=== PATIENT | female | born 1980 ===

== ENCOUNTER 2017-03-24 13:56 | Emergency (ER) | payer SELFPAY ==
[2017-03-24 14:07] VITALS: TEMP 99
--- NOTE | 2017-03-24 14:56 | C.PDOC ---
History Of Present Illness 37 y/o F p/w lower gingival swelling and pain x 3 months. States has been seen before but has never followed up with dental due to lack of insurance. Patient denies fever, drooling, vomiting. She also notes an abdominal pain that she has had for over a year. Time Seen by Provider: 03/24/17 14:17 Chief Complaint (Nursing): Dental Pain Past Medical History Vital Signs: Last Vital Signs Temp 99 F 03/24/17 14:03 Pulse 85 03/24/17 15:09 Resp 16 03/24/17 15:09 BP 119/75 03/24/17 15:09 Pulse Ox 96 03/24/17 15:32 - Medical History PMH: Asthma, Migraine Family History: States: No Known Family Hx - Social History Hx Alcohol Use: No Hx Substance Use: No - Immunization History Hx Tetanus Toxoid Vaccination: No Hx Influenza Vaccination: No Hx Pneumococcal Vaccination: No Review Of Systems Except As Marked, All Systems Reviewed And Found Negative. Constitutional: Negative for: Fever Cardiovascular: Negative for: Chest Pain Physical Exam - Physical Exam Additional Physical Exam Comments: Gen: NAD Head: NC ENT: Lower gingival inflammation without visible abscess. No drooling. No ASW SPECIALIST. Uvula midline. Poor dentition. Neck: Supple, FROM Abd: Soft, no guarding or rebound. ED Course And Treatment O2 Sat by Pulse Oximetry: 96 Medical Decision Making Medical Decision Making: Vital signs normal. Nontoxic in appearance. Will start patient on antibiotics and pain medication but advised to f/u with dentistry for definitive management. Informed patient of other EDs with dental ER but no indication for emergent Dental consult at this time. Also informed patient to follow up with clinic for further evaluation of abdominal pain but no indication for further evaluation in ED for this chronic abdominal pain at this time. Disposition - Disposition Disposition: HOME/ ROUTINE Disposition Time: 14:54 Condition: STABLE Prescriptions: Amoxicillin/Clavulanate [Augmentin 875 MG-125 MG] 1 tab PO BID #20 tab Famotidine/Ca Carb/Mag Hydrox [Pepcid Complete Tablet Chew] 1 each PO BID #28 tab.chew Instructions: Toothache (ED) Forms: [facility] (Spanish), School Excuse - Clinical Impression Clinical Impression: Pain, dental
[2017-03-24 15:10] VITALS: BP 119/75; PULSE 85; RESP 16
[2017-03-24 15:31] VITALS: O2SAT 96
== END 2017-03-24 15:09 | disposition home or self-care (01) ==
LOC: C.ER 13:56
DX: K08.89 Other specified disorders of teeth and supporting structures (principal)